=== PATIENT | female | born 1970 | race Caucasian/White ===

== ENCOUNTER 2017-02-26 08:41 | Emergency (ER) | payer MEDICAID ==
[~2017-02-26] VITALS: Ht 160 cm; Wt 74.8 kg
[2017-02-26 10:26] VITALS: BP 146/84
== END 2017-02-26 10:26 | disposition home or self-care (01) ==
LOC: ED 08:41
DX: M54.42 Lumbago with sciatica, left side (principal); M54.41 Lumbago with sciatica, right side; I10 Essential (primary) hypertension
CPT/HCPCS: J1885